=== PATIENT | female | born 1955 | race Caucasian/White ===

== ENCOUNTER 2016-10-31 11:04 | Day surgery (SDC) | payer BC ==
--- NOTE | ~2016-10-31 | EGD ---
EGD REPORT [facility] 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 Medicines: Monitored Anesthesia Care Complications: No immediate complications. Procedure: Informed consent was obtained, including a discussion of unknown benefits or risks related to FMT (specifically risk for immune dosorders or other diseases). After I obtained informed consent, the scope was passed under direct vision. Throughout the procedure, the patient's blood pressure, pulse, and oxygen saturations were monitored continuously. The PCF [id number] was introduced through the anus and advanced to 10 cm into the ileum. The colonoscopy was performed without difficulty. The patient tolerated the procedure well. The quality of the bowel preparation was adequate. Findings: The perianal and digital rectal examinations were normal. Multiple small-mouthed diverticula were found in the sigmoid colon. A moderate amount of liquid stool was found in the entire colon. Fecal Microbiota Transplant (Bacteriotherapy): Donor stool was prepared by Laboratory staff using saline as per protocol. Approximately 400 mL of the emulsified donor stool was instilled in the cecum and in the distal ileum. A detailed colonoscopic exam could not be performed upon scope withdrawal secondary to limited visibility from the instilled stool. Impression: - Diverticulosis in the sigmoid colon. - Stool in the entire examined colon. - Fecal Microbiota Transplant (Bacteriotherapy) performed in the cecum and in the distal ileum. Recommendation: - Patient has a contact number available for emergencies. The signs and symptoms of potential delayed complications were discussed with the patient. Return to normal activities tomorrow. Written discharge instructions were provided to the patient. - Regular diet. EGD REPORT [address] [address] NAME: ANNA BIANCHI : 55 STATUS : [facility] [place] PAT#: [id number] AGE: 61 ADM/REG DATE : 10/31/16 MR#: [id number] REPORT SERV DATE: 10/31/16 DICTATED BY: DATE: REPORT STATUS : Draft TRANSCRIBED BY: [employer] DATE: 10/31/16 - Discharge patient to home. - Continue present medications. - Remain supine at least 4 hours[address] Follow up with Dr. Kamara with regard to routine care. Procedure Code(s): --- Professional --- 74900, Colonoscopy, flexible, proximal to splenic flexure; diagnostic, with or without collection of specimen(s) by brushing or washing, with or without colon decompression (separate procedure) 71114, Preparation of fecal microbiota for instillation, including assessment of donor specimen Diagnosis Code(s): --- Professional --- K57.30, Diverticulosis of large intestine without perforation or abscess without bleeding A04.7, Enterocolitis due to Clostridium difficile CPT copyright 2013 [employer]. All rights reserved. The codes documented in this report are preliminary and upon orthopedic coder review may be revised to meet current compliance requirements. NANCY MURPHY MD 10/31/2016 2:43 PM This report has been signed electronically. Number of Addenda: 0 Note Initiated On: 10/31/2016 2:26 PM [address] [address]
[~2016-10-31 11:04] MED LIST: ASAEC PO; CHANTIX1 PO; CRESTOR; CRESTOR40 MG PO; LOP50 PO; MULTIPLE VIT PO; NEXIUM20 M1 PO; PRIN5 PO; PROMEGA PO; SUCR PO; VANCOCIN HCL125 MG PO
[2016-12-05] MEDS ORDERED: NORV5 PO (10:33)
[2016-12-05] MEDS ORDERED: FERROUS SULF325 M1 PO (10:34)
[2016-12-05] MEDS ORDERED: CINNAMONPO (10:34)
[2016-12-05] MEDS ORDERED: MELATONIN5 M1 PO (10:35)
[2016-12-05] MEDS ORDERED: NEXIUM40 PO (10:35)
[2016-12-05] MEDS ORDERED: NITROSTAT0.4 MG SL (10:36)
[2016-12-05] MEDS ORDERED: VIIBRYD40 MG PO (10:36)
[2016-12-05] MEDS ORDERED: VITAMIN B-121000 MC1 SL (10:37)
[2016-12-05] MEDS ORDERED: VITC500 PO (10:37)
[2016-12-05] MEDS ORDERED: VITAMIN D31000 UNIT PO (10:37)
[2016-12-05] MEDS ORDERED: X25 PO (10:38)
== END 2016-10-31 23:59 | disposition home health service (06) ==
LOC: DMU 11:04
PROVIDERS: Internal Medicine Gastroenterology
PROC: 0DJD8ZZ Inspection of Lower Intestinal Tract, Via Natural or Artificial Opening Endoscopic (ICD-10-PCS; principal; 2016-10-31 12:30)
DX: A04.7 Enterocolitis due to Clostridium difficile (principal); K57.30 Diverticulosis of large intestine without perforation or abscess without bleeding; G47.30 Sleep apnea, unspecified; I10 Essential (primary) hypertension; J44.9 Chronic obstructive pulmonary disease, unspecified; I20.9 Angina pectoris, unspecified; D64.9 Anemia, unspecified; E78.00 Pure hypercholesterolemia, unspecified; K21.9 Gastro-esophageal reflux disease without esophagitis; F41.9 Anxiety disorder, unspecified; M19.90 Unspecified osteoarthritis, unspecified site; Z95.1 Presence of aortocoronary bypass graft; Z88.8 Allergy status to other drugs, medicaments and biological substances; Z87.891 Personal history of nicotine dependence; Z98.51 Tubal ligation status; Z98.890 Other specified postprocedural states